=== PATIENT | male | born 1955 | race Asian ===

== ENCOUNTER 2019-07-07 14:45 | Emergency (ER) | payer OTHER ==
[~2019-07-07] VITALS: Ht 160 cm; Wt 62.2 kg
[~2019-07-07 14:45] MED LIST: NAPR-985 PO
[2019-07-07 14:49] VITALS: BP 157/83; PULSE 75; RESP 16; Ht 160 cm; Wt 62.2 kg
== END 2019-07-07 17:54 | disposition home or self-care (01) ==
LOC: FTE 14:45
DX: M25.512 Pain in left shoulder (principal); I10 Essential (primary) hypertension
CPT/HCPCS: 73030; Z7502